=== PATIENT | male | born 1985 | race Caucasian/White ===

== ENCOUNTER 2020-02-11 10:46 | Emergency (ER) | payer OTHER, SELFPAY ==
--- NOTE | ~2020-02-11 | XR_ITS ---
EXAMINATION: XR chest 2V DATE: 02/11/2020 11:34 INDICATION: Chest pain. TECHNIQUE: Frontal and lateral views of the chest were obtained. COMPARISON: None. FINDINGS: The chest demonstrates clear lungs without pneumonia, pleural effusion, or pneumothorax. Th e heart size is normal. IMPRESSION: 1. No acute cardiopulmonary disease. Reviewed, dictated and finalized at location B. [employer]
[2020-02-11 10:52] VITALS: BP 144/92; PULSE 75; RESP 18; TEMP 37; O2SAT 99
--- NOTE | 2020-02-11 11:00 | ECG_ITS ---
Measurements Intervals [place] Rate: 75 P: 54 CT: 174 QRS: 53 QRSD: 114 T: 27 QT: 398 QTc: 446 Interpretive Statements SINUS RHYTHM INTRAVENTRICULAR CONDUCTION DELAY BASELINE WANDER- I, II, III, AVL ,AVF, V4 BORDERLINE ECG Electronically Signed On 02-11-2020 13:46:35 MANAGER BODY by Deric Castro D.O.
--- NOTE | 2020-02-11 11:03 | ED.CHESTPAIN ---
HPI - Chest Pain General Chief Complaint: Chest Pain Stated Complaint: Chest Pain Time Seen by Provider: 02/11/20 10:57 Source: patient Mode of arrival: ambulatory Limitations: no limitations History of Present Illness HPI narrative: Patient is a 34-year-old male complaining of chest tightness, midsternal, 8 out of 10 earlier now down to 2 out of 10, started approximately 2 days ago. Patient states that he had a similar episode 2 months ago was seen here in the emergency room and was diagnosed with a panic attack. Denies any shortness of breath, abdominal pain, nausea vomiting or diaphoresis. Related Data Home Medications Medication Instructions Recorded Confirmed mirtazapine 45 mg PO DAILY 02/11/20 Allergies Allergy/AdvReac Type Severity Reaction Status Date / Time antipsychotics Allergy Anxiety Uncoded 02/11/20 10:59 Review of Systems Review of Systems: All systems reviewed & are unremarkable except as noted in HPI and below Constitutional: Constitutional: Denies body ache(s), Denies chills, Denies excessive sweating, Denies fatigue, Denies fever(s), Denies headache(s), Denies lethargy, Denies malaise, Denies weakness and Denies weight loss Eyes: Eyes: Denies blurry vision, Denies change in vision and Denies loss of vision ENT: Denies dizziness, Denies ear discharge, Denies headache(s), Denies lip swelling, Denies epistaxis, Denies nasal congestion, Denies neck pain, Denies throat swelling and Denies tongue swelling Cardiovascular: Cardiovascular: Denies diaphoresis, Denies rapid heart rate, Denies edema, Denies irregular heart rhythm, Denies lightheadedness, Denies palpitations, Denies dyspnea and Denies dyspnea on exertion Respiratory: Respiratory: Denies chest congestion, Denies cough, Denies hemoptysis, Denies dyspnea and Denies dyspnea on exertion Gastrointestinal: Gastrointestinal: Denies abdominal pain, Denies melena, Denies hematochezia, Denies diarrhea, Denies nausea, Denies vomiting and Denies hematemesis Musculoskeletal: Musculoskeletal: Denies abnormal gait, Denies deformity, Denies joint swelling, Denies limited range of motion, Denies neck pain and Denies numbness Neurologic: Denies Abnormal speech present, Denies abnormal gait, Denies confusion, Denies dizziness, Denies headache(s), Denies focal weakness, Denies loss of vision, Denies numbness, Denies Other visual disturbances, Denies Sensory deficit (Neuro) and Denies weakness Psychiatric: Psychiatric: Denies confusion, Denies depression, Denies auditory hallucinations, Denies homicidal ideation and Denies suicidal ideation Endocrine: Endocrine: Denies cold intolerance, Denies excessive sweating, Denies fatigue, Denies heat intolerance and Denies palpitations Hematologic/Lymphatic: Hematologic/Lymphatic: Denies easy bleeding and Denies easy bruising Allergic/Immunologic: Allergic/Immunologic: Denies lip swelling, Denies throat swelling and Denies tongue swelling Exam Const: General: cooperative, healthy appearing, comfortable, no acute distress, well developed, alert and awake; No confusion Orientation/consciousness: oriented to person, oriented to place, oriented to time, patient oriented x3 and No confusion Limitations: no limitations HENMT: Head: normal to inspection, normocephalic and atraumatic Ears: hearing grossly normal bilaterally, TM normal on the right and TM normal on the left General nose exam: Normal external nose present, Normal nares present and No nasal discharge present Face and sinus: normal facial exam Mouth: Yes Normal oral and palatal mucosa present, Yes lip normal, Yes tongue normal and Yes oropharynx normal Throat: posterior oropharynx normal, tonsils normal and uvula midline Eyes: General: appearance normal, both eyes and all related structures Pupils: Equal, round and reactive pupils present EOM: EOMs intact bilaterally Neck: Neck: normal visual inspection, full ROM, no lymphadenopathy and no meningeal signs Chest: Chest
[2020-02-11 11:10] LABS: Basophils Percent Auto 0.4 % (0.2-1.2); Eosinophils Absolute Auto 0.3 K/mm3 (0-0.3); Eosinophils Percent Auto 3.4 % (0-4.4); Hematocrit 43.6 % (42.0-52.0); Hemoglobin 15.4 g/dL (14.0-18.0); Immature Granulocyte Absolute 0.03 K/mm3 (0.00-0.031); Immature Granulocyte Percent A 0.4 % (0-0.5); Lymphocytes Absolute Auto 2.08 K/mm3 (0.9-3.2); Lymphocytes Percent Auto 27.5 % (18.3-44.2); Mean Corpuscular HGB Conc 35.3 g/dl (32-36); Mean Corpuscular Hemoglobin 31.2 pg (26-34); Mean Corpuscular Volume 88.3 fl (80-100); Mean Platelet Volume 9.3 fl (7.4-10.4); Monocytes Absolute Auto 0.6 K/mm3 (0.1-0.6); Monocytes Percent Auto 7.3 % (2.6-8.5); Neutrophils Absolute Auto 4.6 K/mm3 (1.3-6.7); Platelet Count Result 289 k/mm3 (150-375); Red Blood Count 4.94 M/mm3 (4.6-6.20); Red Cell Distribution Width 12.3 % (11.5-14.5); White Blood Count 7.6 K/mm3 (4.5-10.0)
[2020-02-11] MEDS: ASPIRIN 81 MG CHEWABLE TABLET 324 MG PO (11:20)
[2020-02-11 11:23] LABS: Anion Gap 11 mmol/L (8-16); Blood Urea Nitrogen 11 mg/dL (9-20); Calcium 9.5 mg/dL (8.4-10.2); Carbon Dioxide 28 mmol/L (22-30); Chloride 102 mmol/L (98-107); Estimated CRCL calculation 119 ml/min; Estimated Glomerular Filt Rate > 60; Glucose 97 mg/dL (75-110); Partial Thromboplastin Time 26.3 SECONDS (22.3-36.8); Sodium 141 mmol/L (137-145)
[2020-02-11 11:35] LABS: Troponin I < 0.012 ng/mL (0.000-0.034)
[2020-02-11 12:09] LABS: Alanine Aminotransferase 80 U/L (4-50); Albumin Level 4.6 g/dL (3.5-5.1); Alkaline Phosphatase 55 U/L (38-126); Aspartate Amino Transferase 42 U/L (17-59); Bilirubin,Total 0.5 mg/dL (0.2-1.3); Lipase 98 U/L (23-300)
[2020-02-11 12:31] LABS: Amphetamine Screen Urine Negative (Negative); Barbiturate Screen Urine Negative (Negative); Benzodiazepines Screen Urine Negative (Negative); Cannabinoid Screen Urine Negative (Negative); Cocaine Screen Urine Negative (Negative); Methadone Screen Urine Negative (Negative); Opiate Screen Urine Negative (Negative); Phencyclidine Screen Urine Negative (Negative)
[2020-02-11 13:07] VITALS: BP 114/69; PULSE 73; RESP 18; O2SAT 99
[2020-02-11 14:45] LABS: Troponin I < 0.012 ng/mL (0.000-0.034)
[2020-02-11 14:54] VITALS: BP 132/78; PULSE 70; RESP 18; O2SAT 99
== END 2020-02-11 14:56 | disposition home or self-care (01) ==
PROVIDERS: Emergency Provider Emergency Medicine
DX: R07.89 Other chest pain (principal); I45.9 Conduction disorder, unspecified
CPT/HCPCS: 36415; 71046; 80053; 80307; 83690; 84484; 85025; 85610; 85730; 93005; 99284; A9270

== ENCOUNTER 2020-03-31 12:45 | Outpatient (CLI) | payer OTHER, SELFPAY ==
[2020-03-31 13:41] LABS: Anion Gap 9 mmol/L (8-16); Blood Urea Nitrogen 10 mg/dL (9-20); Carbon Dioxide 30 mmol/L (22-30); Chloride 100 mmol/L (98-107); Estimated Glomerular Filt Rate > 60; Glucose 103 mg/dL (75-110); Potassium 4.2 mmol/L (3.4-5.0); Sodium 139 mmol/L (137-145)
[2020-03-31 14:54] LABS: Free T4 Free Thyroxine 1.06 ng/mL (0.78-2.19); Vitamin D 25 Hydroxy 21.5 ng/mL
[2020-04-05 06:04] LABS: Triiodothyronine T3 Free 3.4 pg/mL (2.3-4.2)
== END 2020-03-31 12:46 | disposition home or self-care (01) ==
PROVIDERS: Visit Provider Internal Medicine Cardiovascular Disease
DX: I49.3 Ventricular premature depolarization (principal); R00.2 Palpitations; F31.9 Bipolar disorder, unspecified; E66.9 Obesity, unspecified; G47.33 Obstructive sleep apnea (adult) (pediatric); R07.9 Chest pain, unspecified
CPT/HCPCS: 36415; 80048; 82306; 84439; 84443; 84481

== ENCOUNTER 2020-06-09 10:28 | Outpatient (CLI) | payer OTHER, SELFPAY ==
--- NOTE | 2020-06-10 09:16 | WPDNEUROLOGY ---
Neurology EEG Report General Information Date of Study: 06/09/20 TEST eeg DIAGNOSIS Seizures CONDITION OF RECORDING awake, drowsy and sleep EEG NUMBER [id number] CLINICAL HISTORY patient reported he started having nonepileptic seizures about 20 years ago. He is not on any seizure medication and has not had a seizure in the last several years. EEG DESCRIPTION Basic resting occipital frequency consists of large amount of well-organized low to medium voltage 9 to 11 hertz per second alpha admixed with minimal amount of low-voltage 15 to 18 hertz per second beta. Low-voltage beta activity seen diffusely admixed with waxing and waning posterior alpha rhythm during drowsiness. Bilateral symmetrical sleep activity seen during sleep of different stages. hyperventilation not done. Photic stimulation produced normal drive. Non paroxysmal. Nonfocal. Nonlateralizing. IMPRESSION Normal record during wakefulness drowsiness and sleep without evidence of any paroxysmal activity
== END 2020-06-09 10:29 | disposition home or self-care (01) ==
PROVIDERS: PCP Nurse Practitioner Family; Visit Provider Psychiatry & Neurology Neurology
DX: R56.9 Unspecified convulsions (principal)
CPT/HCPCS: 95816

== ENCOUNTER 2020-07-09 13:17 | Emergency (ER) | payer OTHER, SELFPAY ==
--- NOTE | ~2020-07-09 | CT_ITS ---
EXAMINATION: CT brain wo con DATE: 07/09/2020 14:03 INDICATION: Confusion. Slurred speech. Left-sided numbness. TECHNIQUE: Computed tomography (CT) of the head was performed without intravenous contrast. The mA wa s adjusted according to patient size. Iterative reconstruction technique was employed. The dose-lengt h product was 605.33 mGy-cm. COMPARISON: None FINDINGS: There is a 1.9 x 0.7 cm arachnoid cyst posterior to right cerebellum. There is no intracran ial hemorrhage, acute infarction, or abnormal intracranial mass lesion. The ventricles are normal in size. The orbits are normal. There is mucosal thickening in the paranasal sinuses. The mastoid air ce lls are normal. IMPRESSION: 1. No etiology for the patient's symptoms. Reviewed, dictated and finalized at location A.
--- NOTE | ~2020-07-09 | XR_ITS ---
EXAMINATION: XR chest 1V portable DATE: 07/09/2020 13:40 INDICATION: Confusion. Left-sided weakness and numbness. TECHNIQUE: A single frontal view of the chest was obtained. COMPARISON: Chest 2 views 02/11/2020 FINDINGS: The chest demonstrates clear lungs without pneumonia, pleural effusion, or pneumothorax. Th e heart size is normal. IMPRESSION: 1. No acute cardiopulmonary disease. Reviewed, dictated and finalized at location A.
--- NOTE | 2020-07-09 13:22 | ECG_ITS ---
Measurements Intervals [place] Rate: 82 P: 46 ID: [id number] QRS: 57 QRSD: 116 T: 36 QT: 354 QTc: 414 Interpretive Statements SINUS RHYTHM INTRAVENTRICULAR CONDUCTION DELAY BORDERLINE ECG Electronically Signed On 07-09-2020 13:46:58 CDT by Deric Castro D.O.
[2020-07-09 13:27] VITALS: BP 128/92; PULSE 78; RESP 21; TEMP 36.7; O2SAT 98
[2020-07-09 13:52] LABS: Glucose Point of Care 99 (65-105)
[2020-07-09 13:58] LABS: Basophils Absolute Auto 0.1 K/mm3 (0.0-0.1); Basophils Percent Auto 0.5 % (0.2-1.2); Eosinophils Absolute Auto 0.4 K/mm3 (0-0.3); Eosinophils Percent Auto 3.8 % (0-4.4); Hematocrit 44.2 % (42.0-52.0); Hemoglobin 15.8 g/dL (14.0-18.0); Immature Granulocyte Absolute 0.05 K/mm3 (0.00-0.031); Immature Granulocyte Percent A 0.5 % (0-0.5); Lymphocytes Absolute Auto 2.02 K/mm3 (0.9-3.2); Lymphocytes Percent Auto 21.2 % (18.3-44.2); Mean Corpuscular HGB Conc 35.7 g/dl (32-36); Mean Corpuscular Hemoglobin 30.8 pg (26-34); Mean Corpuscular Volume 86.2 fl (80-100); Mean Platelet Volume 9.1 fl (7.4-10.4); Monocytes Absolute Auto 0.8 K/mm3 (0.1-0.6); Monocytes Percent Auto 7.9 % (2.6-8.5); Neutrophils Absolute Auto 6.3 K/mm3 (1.3-6.7); Neutrophils Percent Auto 66.1 % (45.5-73.1); Platelet Count Result 313 k/mm3 (150-375); Red Blood Count 5.13 M/mm3 (4.6-6.20); White Blood Count 9.5 K/mm3 (4.5-10.0)
--- NOTE | 2020-07-09 14:05 | ED.GENADULT ---
HPI - General Adult General Chief complaint: Neuro Symptoms/Deficit Stated complaint: left extremities heavy Time Seen by Provider: 07/09/20 14:05 History of Present Illness HPI narrative: Patient is a 35-year-old male who comes to the emergency room today after feeling lightheaded earlier today. Patient reports that earlier today while at work he felt lightheaded like he might pass out for about 10 seconds. And then about 30 minutes later this happened again and with this other episode he lost his hearing for a few seconds and he had what he describes as an electric shock over the left side of his body with some tingling over the entire left side of his body and his left leg felt heavy. These episodes happen while he was being active. The lightheadedness and the decreased hearing quickly resolved, the primary care doctor sensation on the left side of his body has improved but still mildly present. Denies any chest pain or shortness of breath. Denies previous history of similar symptoms. Has otherwise been feeling well recently. Notes that he was started on metoprolol about 50 days ago for treatment of PVCs. No recent vomiting Related Data Home Medications Medication Instructions Recorded Confirmed metoprolol tartrate 07/09/20 07/09/20 Allergies Allergy/AdvReac Type Severity Reaction Status Date / Time antipsychotics Allergy Anxiety Uncoded 07/09/20 13:48 Review of Systems Constitutional: Constitutional: Reports as per HPI, Denies fever(s), Denies night sweats and Denies weakness Cardiovascular: Cardiovascular: Denies chest pain, Denies edema, Denies leg edema, Denies dyspnea and Denies orthopnea Respiratory: Respiratory: Denies cough and Denies dyspnea Gastrointestinal: Gastrointestinal: Denies abdominal pain, Denies constipation, Denies diarrhea, Denies nausea and Denies vomiting Musculoskeletal: Musculoskeletal: Denies abnormal gait, Denies back pain, Denies numbness and Denies tingling Neurologic: Denies Abnormal speech present, Denies abnormal gait, Reports dizziness, Denies numbness, Denies tingling and Denies weakness Psychiatric: Psychiatric: Denies homicidal ideation and Denies suicidal ideation Exam Const: General: cooperative, healthy appearing, comfortable, no acute distress, well developed, alert, awake and Physically active Orientation/consciousness: patient oriented x3 HENMT: Head: normal to inspection, normocephalic and atraumatic Ears: hearing grossly normal bilaterally and external ears normal General nose exam: Normal external nose present Eyes: Pupils: Equal, round and reactive pupils present EOM: EOMs intact bilaterally Neck: Neck: normal visual inspection Chest: Chest palpation & inspection: normal inspection of the chest and no tenderness Resp: Effort & Inspection: normal respiratory effort and able to speak in complete sentences Auscultation: clear to auscultation bilaterally Cardio: Rate: regular rate Rhythm: regular rhythm GI: Inspection: normal to inspection GI Palp: No abdominal tenderness : General: Yes no CVA tenderness Back/Spine/Pelvis: Back: no CVA tenderness Skin: General skin exam: normal color and no rashes or lesions noted Lesions: no lesions Neuro: General: patient oriented x3, moves all extremities, no focal motor deficits and CN's II-XI intact bilaterally Cranial nerves: Yes CN's II-XII intact bilaterally and Yes Equal, round and reactive pupils present Speech: No Abnormal speech present Gait exam (Neuro): Normal gait present Motor exam (neuro): 5/5 motor strength present throughout and Pronator motor function not present Sensory Exam: normal sensation Extrem: General: normal to inspection and full ROM Psych: Appearance: grossly normal and well kempt Mental Status: mental status grossly normal Speech and movement: Normal speech and movement present Affect: normal affect Thought process: Normal thought process present Course Course Emergency Cours
[2020-07-09 14:06] VITALS: BP 124/81; PULSE 89; RESP 23; O2SAT 97
[2020-07-09 14:07] LABS: Prothrombin Time 13.4 Seconds (11.1-14.7)
[2020-07-09 14:08] LABS: Partial Thromboplastin Time 24.5 SECONDS (22.3-36.8)
[2020-07-09 14:09] LABS: Anion Gap 8 mmol/L (8-16); Blood Urea Nitrogen 12 mg/dL (9-20); Calcium 9.8 mg/dL (8.4-10.2); Carbon Dioxide 27 mmol/L (22-30); Chloride 104 mmol/L (98-107); Estimated Glomerular Filt Rate > 60; Glucose 98 mg/dL (75-110); Potassium 4.3 mmol/L (3.4-5.0); Sodium 139 mmol/L (137-145)
[2020-07-09 14:16] VITALS: BP 117/65; PULSE 84; RESP 19; O2SAT 97
[2020-07-09 14:20] LABS: Troponin I < 0.012 ng/mL (0.000-0.034)
[2020-07-09 14:31] VITALS: BP 106/54; PULSE 80; RESP 23; O2SAT 98
[2020-07-09] MEDS: LACTATED RINGERS 1,000 ML 999 ML IV CONT (14:48)
[2020-07-09] MEDS: KETOROLAC 30 MG/ML VIAL (*BKC) IV PUSH (16:44)
[2020-07-09 16:51] VITALS: BP 134/73; PULSE 87; RESP 18; O2SAT 98
== END 2020-07-09 16:51 | disposition home or self-care (01) ==
PROVIDERS: Emergency Provider Emergency Medicine; PCP Nurse Practitioner Family
DX: R42 Dizziness and giddiness (principal); I49.3 Ventricular premature depolarization; G43.909 Migraine, unspecified, not intractable, without status migrainosus; I45.9 Conduction disorder, unspecified
CPT/HCPCS: 36415; 70450; 71045; 80048; 84484; 85025; 85610; 85730; 93005; 96361; 96374; 99284; J1885; J7120

== ENCOUNTER 2021-06-14 18:18 | Emergency (ER) | payer OTHER, SELFPAY ==
--- NOTE | ~2021-06-14 | XR_ITS ---
EXAMINATION: XR chest 2V DATE: 06/14/2021 20:09 INDICATION: Palpitations TECHNIQUE: PA and lateral views of the chest were obtained. COMPARISON: Chest radiograph dated 07/09/2020 FINDINGS: The lungs remain clear with no focal airspace opacities, pulmonary edema, pleural effusion or pneumot horax. The cardiomediastinal silhouette is normal. Visualized bones and soft tissues are unremarkable . IMPRESSION: 1. No acute cardiopulmonary disease. Reviewed, dictated and finalized at location A.
[2021-06-14 18:20] VITALS: BP 137/82; PULSE 100; RESP 17; TEMP 36.4; O2SAT 99
--- NOTE | 2021-06-14 18:41 | ECG_ITS ---
Measurements Intervals [place] Rate: 92 P: 46 TN: 156 QRS: 56 QRSD: 104 T: 35 QT: 358 QTc: 443 Interpretive Statements SINUS RHYTHM MILD INTERVENTRICULAR CONDUCTION ABNORMALITY COMPARED TO ECG 07/09/2020 13:32:38 NO SIGNIFICANT CHANGE Electronically Signed On 06-15-2021 14:13:09 CDT by Oumar Edward M.D.
--- NOTE | 2021-06-14 19:15 | ED.GENADULT ---
HPI - General Adult General Chief complaint: Arrhythmia/Palpitations Stated complaint: Palpitations Time Seen by Provider: 06/14/21 19:00 History of Present Illness HPI narrative: Patient is a 36-year-old gentleman who presents the emergency department with chief complaint of palpitations. Patient reports that today he was at work and suddenly felt as though his heart was beating fast patient states he was beating 150 times a minute reports that he started having a numbness on his left side of his body that he described as more of an electric shock type situation. Patient states that he has had a similar episode before in the past was found to have PVCs he has a brother that has similar complaints is currently being worked up for SVT. Patient denies illicit drug use denies alcohol use denies energy drink or heavy caffeine intake. Patient reports he has had a Holter monitor test done before patient reports his symptoms are doing better at this time Related Data Home Medications Medication Instructions Recorded Confirmed metoprolol tartrate 07/09/20 08/12/20 hydroxyzine HCl 50 mg tablet 50 mg PO BID 08/12/20 08/12/20 sumatriptan succinate 100 mg tablet 100 mg PO ONCE 08/12/20 08/12/20 Allergies Allergy/AdvReac Type Severity Reaction Status Date / Time antipsychotics Allergy Anxiety Uncoded 06/14/21 18:22 Review of Systems Review of Systems: A 10 system review of systems was completed on the patient and is negative except for what is stated in the HPI. Nursing and ancillary documentation was reviewed. [facility] Social History Social History Smoking status: Never smoker Alcohol intake: never Comments Patient denies illicit drug use, denies heavy caffeine intake, denies stimulant use, Family history significant for Andrea's thyroiditis Exam Narrative: GENERAL: Well-appearing, well-nourished, and in no acute distress. HEAD: Normocephalic, atraumatic. EYES: PERRLA and EOMI. ENT: Nares clear, no rhinorrhea or epistaxis. Mucous membranes moist. NECK: Supple. CHEST: Clear to auscultation. No respiratory distress. HEART: Regular rate and rhythm. No murmur heard. Normal peripheral pulses. ABDOMEN: Soft, nontender, nondistended, normal active bowel sounds. EXTREMITIES: Normal range of motion. No edema. SKIN: Warm, dry, no rash. NEURO: No focal deficits. Alert and oriented x3. PSYCH: Normal mood and affect. 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 Vital Signs Vital signs: Vital Signs Temperature 36.4 C L 06/14/21 18:20 Pulse Rate 100 06/14/21 18:20 Respiratory Rate 17 06/14/21 18:20 Blood Pressure 137/82 06/14/21 18:20 Pulse Oximetry 99 06/14/21 18:20 Temperature 36.4 C L 06/14/21 18:20 Pulse Rate 83 06/14/21 20:42 Respiratory Rate 18 06/14/21 20:42 Blood Pressure 131/81 06/14/21 20:42 Pulse Oximetry 99 06/14/21 20:42 Medical Decision Making Vital Signs Vital Signs: Vital Signs Temperature 36.4 C L 06/14/21 18:20 Pulse Rate 100 06/14/21 18:20 Respiratory Rate 17 06/14/21 18:20 Blood Pressure 137/82 06/14/21 18:20 Pulse Oximetry 99 06/14/21 18:20 Temperature 36.4 C L 06/14/21 18:20 Pulse Rate 83 06/14/21 20:42 Respiratory Rate 18 06/14/21 20:42 Blood Pressure 131/81 06/14/21 20:42 Pulse Oximetry 99 06/14/21 20:42 Lab Data Result diagrams: 06/14/21 19:32 06/14/21 19:32 Labs: Lab Results 06/14/21 06/14/21 06/14/21 Range/Units 19:32 19:32 19:32 WBC 8.2 (4.5-10.0) K/mm3 RBC 5.03 (4.6-6.20) M/mm3
[2021-06-14 19:38] LABS: Basophils Absolute Auto 0.1 K/mm3 (0.0-0.1); Basophils Percent Auto 0.7 % (0.2-1.2); Eosinophils Absolute Auto 0.4 K/mm3 (0-0.3); Eosinophils Percent Auto 4.4 % (0-4.4); Hematocrit 44.2 % (42.0-52.0); Hemoglobin 15.4 g/dL (14.0-18.0); Immature Granulocyte Absolute 0.03 K/mm3 (0.00-0.031); Immature Granulocyte Percent A 0.4 % (0-0.5); Lymphocytes Absolute Auto 1.64 K/mm3 (0.9-3.2); Lymphocytes Percent Auto 20.1 % (18.3-44.2); Mean Corpuscular HGB Conc 34.8 g/dl (32-36); Mean Corpuscular Hemoglobin 30.6 pg (26-34); Mean Corpuscular Volume 87.9 fl (80-100); Mean Platelet Volume 9.3 fl (7.4-10.4); Monocytes Absolute Auto 0.6 K/mm3 (0.1-0.6); Monocytes Percent Auto 7.9 % (2.6-8.5); Neutrophils Absolute Auto 5.4 K/mm3 (1.3-6.7); Neutrophils Percent Auto 66.5 % (45.5-73.1); Platelet Count Result 295 k/mm3 (150-375); Red Blood Count 5.03 M/mm3 (4.6-6.20); Red Cell Distribution Width 12.3 % (11.5-14.5); White Blood Count 8.2 K/mm3 (4.5-10.0)
[2021-06-14 19:48] LABS: Alanine Aminotransferase 54 U/L (4-50); Albumin Level 4.7 g/dL (3.5-5.1); Alkaline Phosphatase 57 U/L (38-126); Anion Gap 8 mmol/L (8-16); Aspartate Amino Transferase 42 U/L (17-59); Bilirubin,Total 0.5 mg/dL (0.2-1.3); Blood Urea Nitrogen 10 mg/dL (9-20); Calcium 9.1 mg/dL (8.4-10.2); Carbon Dioxide 25 mmol/L (22-30); Chloride 106 mmol/L (98-107); Estimated CRCL calculation 128 ml/min; Estimated Glomerular Filt Rate > 60; Glucose 104 mg/dL (65-110); Magnesium 2.1 mg/dL (1.6-2.3); Potassium 3.8 mmol/L (3.4-5.0); Sodium 139 mmol/L (137-145)
[2021-06-14 19:49] LABS: Lactic Acid Reflex 1.4 mmol/L (0.7-2.1)
[2021-06-14 20:00] LABS: Troponin I < 0.012 ng/mL (0.000-0.034)
[2021-06-14 20:42] VITALS: BP 131/81; PULSE 83; RESP 18; O2SAT 99
[2021-06-14 20:44] LABS: Add Urine Microscopic? NO; Appearance Urine Clear (Clear); Bilirubin Urine Negative (Negative); Blood Urine Negative (Negative); Color Urine Yellow (Yellow); Glucose Urine UA Negative (Negative); Ketones Urine Negative (Negative); Leukocyte Esterase Ur Negative LEU/UL (Negative); Nitrate Urine Negative (Negative); Protein Urine Negative (Negative); Specific Grav Ur 1.021 (1.001-1.035); Urobilinogen Urine Negative mg/dL (<2.0)
[2021-06-14 21:05] LABS: Amphetamine Screen Urine Negative (Negative); Barbiturate Screen Urine Negative (Negative); Benzodiazepines Screen Urine Negative (Negative); Cannabinoid Screen Urine Negative (Negative); Cocaine Screen Urine Negative (Negative); Methadone Screen Urine Negative (Negative); Opiate Screen Urine Negative (Negative); Phencyclidine Screen Urine Negative (Negative)
[2021-06-14 21:32] VITALS: BP 138/83; PULSE 77; RESP 19; O2SAT 98
== END 2021-06-14 21:37 | disposition home or self-care (01) ==
PROVIDERS: Emergency Provider Emergency Medicine; PCP Nurse Practitioner Family
DX: R00.2 Palpitations (principal); R94.31 Abnormal electrocardiogram [ECG] [EKG]
CPT/HCPCS: 36415; 71046; 80053; 80307; 81003; 83605; 83735; 84443; 84484; 85025; 93005; 99284

== ENCOUNTER 2021-10-06 20:22 | Emergency (ER) | payer OTHER, SELFPAY ==
[2021-10-06 20:44] VITALS: BP 133/84; PULSE 106; RESP 18; TEMP 36.4; O2SAT 99
--- NOTE | 2021-10-06 22:20 | ED.HA ---
HPI - Headache General Chief Complaint: Headache <ABIMBOLA Barton Last Filed: 10/07/21 01:25> Stated Complaint: migraine x 3 days <ABIMBOLA Barton Last Filed: 10/07/21 01:25> Time Seen by Provider: 10/06/21 21:44 <ABIMBOLA Barton Last Filed: 10/07/21 01:25> Source: patient <ABIMBOLA Barton Last Filed: 10/07/21 01:25> Mode of arrival: ambulatory <ABIMBOLA Barton Last Filed: 10/07/21 01:25> Limitations: no limitations <ABIMBOLA Barton Last Filed: 10/07/21 01:25> History of Present Illness HPI Narrative: Patient is a 36 y/o male who presents to the ED with report of migraine headache. Patient reports having a headache for the last 3 days. He does have a long history of migraines and typically experiences a migraine several times a month. His last migraine episode was about 3 weeks ago. The current headache is consistent with his previous migraines. Pain is located left frontal/temporal region. He typically takes Imitrex prn for his migraines and took this this morning at 6 AM, but without relief. He has not taken anything else for pain today. He denies any aura, phonophobia, photophobia associated with current headache. Does report nausea, but denies vomiting. No fever, chills, neck stiffness, abdominal pain, vision changes, dizziness, lightheadedness, focal weakness. Does have chronic sinus issues. <ABIMBOLA Barton Last Filed: 10/07/21 01:25> Related Data Home Medications: Home Medications Medication Instructions Recorded Confirmed metoprolol tartrate 25 mg tablet 07/09/20 08/12/20 hydroxyzine HCl 50 mg tablet 50 mg PO BID 08/12/20 08/12/20 sumatriptan succinate 100 mg 100 mg PO ONCE 08/12/20 08/12/20 tablet (Imitrex) <ABIMBOLA Barton Last Filed: 10/07/21 01:25> Allergies/Adverse Reactions: Allergies Allergy/AdvReac Type Severity Reaction Status Date / Time antipsychotics Allergy Anxiety Uncoded 06/14/21 18:22 <Sierra Lynn PA-C - Last Filed: 10/07/21 01:25> Review of Systems Review of Systems: CONSTITUTIONAL: Denies fever, chills, or sweats. EYES: Denies visual changes, photophobia, aura. ENT: Reports chronic sinus issues. Denies phonophobia. CARDIOVASCULAR: Denies chest pain. RESPIRATORY: Denies cough or dyspnea. GASTROINTESTINAL: Reports nausea. Denies abdominal pain, vomiting, or diarrhea. GENITOURINARY: Denies dysuria or hematuria. SKIN: Denies rash or itching. MUSCULOSKELETAL: Denies neck stiffness. NEUROLOGIC: Reports migraine headache. Denies dizziness, lightheadedness, numbness, or focal weakness. <Sierra Lynn PA-C - Last Filed: 10/07/21 01:25> All systems reviewed & are unremarkable except as noted in HPI and below <Sierra Lynn PA-C - Last Filed: 10/07/21 01:25> PMFSH Past Medical History Medical History: Medical History Chronic sinusitis History of migraine <Sierra Lynn PA-C - Last Filed: 10/07/21 01:25> Surgical History Surgical History: Surgical History (Updated 10/06/21 @ 23:40 by Sierra Lynn PA-C) History of orchiectomy History of tonsillectomy <Sierra Lynn PA-C - Last Filed: 10/07/21 01:25> Social History Social History: Social History Smoking status: Never smoker Alcohol intake: never <Sierra Lynn PA-C - Last Filed: 10/07/21 01:25> Exam Narrative: GENERAL: Well appearing, well-nourished, non-toxic, in no acute distress. HEAD: Normocephalic, atraumatic. EYES: PERRL/EOMI, conjunctivae clear bilaterally. NECK: Supple. No adenopathy, no masses. No cervical midline spinal tenderness. Full nonpainful range of motion. No meningeal signs. RESPIRATORY: Airway patent, respirations nonlabored. Clear to auscultation bilaterally, no rales, rhonchi, wheezing. CARDIOVASCULAR: Regular rate and rhythm without murmurs, rubs
[2021-10-06] MEDS: diphenhydrAMINE HCl INJ 50 MG/ML VIAL 25 MG IV PUSH (23:27)
[2021-10-06] MEDS: KETOROLAC 30 MG/ML VIAL (*BKC) IV PUSH (23:28)
[2021-10-06] MEDS: SODIUM CHLORIDE 0.9% IV 1,000 ML 999 ML IV CONT (23:29)
[2021-10-06] MEDS: METOCLOPRAMIDE HCL INJ 10 MG/2 ML VIAL IV PUSH (23:29)
[2021-10-07 01:03] VITALS: BP 117/84; PULSE 76; RESP 21; O2SAT 96
--- NOTE | 2021-10-09 09:36 | PC.NURSE ---
LATE ENTRY This note is being entered to document information to the patient's record. The following information was omitted on [10/06/2021], by [Kaveh Chavez RN]. [place] 0025
== END 2021-10-07 01:05 | disposition home or self-care (01) ==
PROVIDERS: Emergency Provider Emergency Medicine; PCP Nurse Practitioner Family
DX: G43.009 Migraine without aura, not intractable, without status migrainosus (principal); J32.9 Chronic sinusitis, unspecified
CPT/HCPCS: 96365; 96375; 99284; J0131; J1100; J1200; J1885; J2765; J7030